=== PATIENT | female | born 1965 | race Caucasian/White ===

== ENCOUNTER 2018-04-29 08:39 | Day surgery (SDC) | payer OTHER, BC ==
[~2018-04-29] VITALS: Ht 157.5 cm; Wt 68.0 kg
[~2018-04-29 08:39] MED LIST: CEFAZOLIN 1 GM IVPB PREMIX 50 ML IV ONE
[2018-04-29] MEDS ORDERED: fentaNYL CITRATE/PF 100 MCG/2 ML AMP IVP PRN ×2 (11:00)
[2018-04-29] MEDS ORDERED: KETOROLAC TROMETHAMINE 30 MG VIAL IVP PRN (11:00)
[2018-04-29] MEDS ORDERED: ONDANSETRON HCL 4 MG/2 ML VIAL IVP PRN ×2 (11:00→14:15)
[2018-04-29] MEDS ORDERED: HYDROcodone/ACETAMIN 5-325 MG TAB (NORCO/ VICODIN) PO PRN (14:15)
[2018-04-29] MEDS ORDERED: HYDROmorphone 2 MG TAB PO PRN (14:15)
[2018-04-29] MEDS ORDERED: ROCURONIUM BROMIDE 10 MG/ML (ZEMURON) ONE (14:30)
[2018-04-29] MEDS ORDERED: NS 1000 ML IV.SOLN IV ONE (14:30)
[2018-04-29] MEDS ORDERED: KETOROLAC TROMETHAMINE 30 MG VIAL ONE ×2 (14:30→17:53)
[2018-04-29] MEDS ORDERED: ROPIVACAINE 0.2% (NAROPIN) PF SOLUTION 100 ML BOTTLE ONE (14:30)
[2018-04-29] MEDS ORDERED: ONDANSETRON HCL 4 MG/2 ML VIAL ONE (14:30)
[2018-04-29] MEDS ORDERED: LIDOCAINE 1% 10 MG/ML, 20 ML MDV ONE (14:30)
[2018-04-29] MEDS ORDERED: PROPOFOL 200MG/ 20ML VIAL (DIPRIVAN) IV ONE (14:30)
[2018-04-29] MEDS ORDERED: FUROSEMIDE 20 MG/2 ML VIAL ONE (14:30)
[2018-04-29] MEDS ORDERED: fentaNYL CITRATE/PF 100 MCG/2 ML AMP ONE ×2 (14:30→14:52)
[2018-04-29] MEDS ORDERED: NS IRRIG SOLN 1000 ML IR ONE (14:30)
[2018-04-29] MEDS ORDERED: NEOSTIGMINE METHYLSULFATE 1 MG/ML, 10 ML VIAL ONE (14:30)
[2018-04-29] MEDS ORDERED: LR 1,000 ML IV.SOLN IV ONE (14:30)
[2018-04-29] MEDS ORDERED: GLYCOPYRROLATE 0.2 MG/ML VIAL ONE (14:30)
[2018-04-29] MEDS ORDERED: LIDOCAINE 2%, 20 ML MDV ONE (14:30)
[2018-04-29] MEDS ORDERED: CEFAZOLIN 1 GM IVPB PREMIX 50 ML IV ONE (14:30)
[2018-04-29] MEDS ORDERED: PHENYLEPHRINE HCL 10 MG/ML VIAL (NEOSYNEPHRINE) ONE (14:30)
[2018-04-29] MEDS ORDERED: MIDAZOLAM HCL 5 MG/ML VIAL (VERSED) IV ONE (14:30)
[2018-04-29] MEDS ORDERED: DEXTROSE 50% JECT 50 ML DISP.SYRIN ONE (14:30)
[2018-04-29] MEDS ORDERED: SEVOFLURANE 15 MIN GAS INH ONE (14:30)
[2018-04-29] MEDS ORDERED: BUPIVACAINE /PF 0.5% 30 ML VIAL ONE (14:30)
[2018-04-29] MEDS ORDERED: KETOROLAC TROMETHAMINE 30 MG VIAL IVP ONE (16:30)
[2018-04-29] MEDS ORDERED: OXYCODONE/ACETAMINOPHEN 5-325 TABLET ONE (17:23)
[2018-04-29] MEDS ORDERED: SIMETHICONE 80 MG TAB.CHEW PO ONE (18:15)
[2018-04-29 20:00] VITALS: BP_SYST 130
[2018-04-29] MEDS: SIMETHICONE 80 MG TAB.CHEW PO SCH (20:54)
[2018-04-29] MEDS: KETOROLAC TROMETHAMINE 30 MG VIAL IVP PRN (22:41)
[2018-04-30 00:48] VITALS: BP_SYST 124
[2018-04-30 00:50] VITALS: BP_SYST 125
[2018-04-30] MEDS: OXYCODONE/ACETAMINOPHEN 5-325 TABLET PO PRN ×2 (03:28→12:39)
[2018-04-30 08:15] VITALS: BP_SYST 100
[2018-04-30] MEDS: SIMETHICONE 80 MG TAB.CHEW PO SCH (08:34)
[2018-04-30] MEDS: KETOROLAC TROMETHAMINE 30 MG VIAL IVP PRN (08:35)
[2018-04-30 10:46] VITALS: BP_SYST 100
[2018-04-30] MEDS ORDERED: KETO10TA2 PO (11:38)
[2018-04-30 12:00] VITALS: BP_SYST 110
== END 2018-04-30 12:50 | disposition home or self-care (01) ==
LOC: SDS 08:39 → SMU 08:40 → SDS 04-30 12:50
PROVIDERS: ATTEND Specialist
DX: D25.1 Intramural leiomyoma of uterus (principal); D25.0 Submucous leiomyoma of uterus; D25.2 Subserosal leiomyoma of uterus; N72 Inflammatory disease of cervix uteri; N87.9 Dysplasia of cervix uteri, unspecified; N88.8 Other specified noninflammatory disorders of cervix uteri; N83.8 Other noninflammatory disorders of ovary, fallopian tube and broad ligament; L85.9 Epidermal thickening, unspecified; K64.4 Residual hemorrhoidal skin tags; N64.52 Nipple discharge; Z79.899 Other long term (current) drug therapy; Z98.890 Other specified postprocedural states
CPT/HCPCS: 46250; 58554; 88304; 88307; C1727; J0690; J1885 ×2; J1940; J2001 ×2; J2250; J2370; J2405; J2704; J2710; J2795; J3010; J3490 ×2; J7030; J7120; E0190